=== PATIENT | female | born 1980 | race Caucasian/White ===

== ENCOUNTER 2022-07-30 13:24 | Emergency (ER) | payer OTHER ==
[2022-07-30 14:33] LABS: ESTIMATED GFR 78 mL/min (>60)
== END 2022-07-30 14:54 | disposition home or self-care (01) ==
LOC: LB.ED 13:24
DX: J10.1 Influenza due to other identified influenza virus with other respiratory manifestations (principal); Z88.0 Allergy status to penicillin; Z88.2 Allergy status to sulfonamides
CPT/HCPCS: 36415; 71045; 80053; 85025; 87804; 87804-59; 99283

== ENCOUNTER 2023-01-24 18:51 | Emergency (ER) | payer OTHER ==
[2023-01-24 19:15] LABS: APPEARANCE,URINE CLOUDY (CLEAR); BILIRUBIN,URINE NEGATIVE (NEGATIVE); COLOR,URINE YELLOW; GLUCOSE,URINE NEGATIVE (NEGATIVE); KETONES,URINE NEGATIVE (NEGATIVE); LEUKOCYTE ESTERASE,URINE SMALL (NEGATIVE); NITRITE,URINE POSITIVE (NEGATIVE); OCCULT BLOOD,URINE LARGE (NEGATIVE); PROTEIN,URINE 30 mg/dL (NEGATIVE); UROBILINOGEN,URINE 0.2 E.U./dL (0.2-1.0)
[2023-01-24 19:21] LABS: BACTERIA,URINE MODERATE /HPF; SQUAMOUS EPITHELIAL CELLS,UR FEW /HPF; WBC CLUMPS,URINE FEW /HPF; WBC,URINE 75-100 /HPF
[2023-01-24] MEDS ORDERED: Ciprofloxacin 500 MG Tab ONE (19:30)
== END 2023-01-24 19:45 | disposition home or self-care (01) ==
LOC: LB.ED 18:51
DX: N39.0 Urinary tract infection, site not specified (principal); Z88.0 Allergy status to penicillin; Z88.2 Allergy status to sulfonamides; Z72.0 Tobacco use
CPT/HCPCS: 81001; 87086; 99283; A9270